=== PATIENT | female | born 1970 | race African-American/Black ===

== ENCOUNTER 2018-05-30 06:16 | Day surgery (SDC) | END 2018-05-30 10:30 | disposition home or self-care (01) ==

== ENCOUNTER 2018-12-21 09:09 | Day surgery (SDC) | payer OTHER ==
[~2018-12-21] VITALS: Ht 162.6 cm; Wt 137.3 kg
[2018-12-21] VITALS (22 sets, daily range): BP systolic 122–191; BP diastolic 73–104; PULSE 68–94; RESP 16–23; Ht 162.6 cm; Wt 137.3 kg
--- NOTE | 2018-12-21 06:28 | PREOPHP ---
DATE OF ADMISSION: 12/21/2018 HISTORY OF PRESENT ILLNESS: A 48-year-old patient who is going to be admitted for diagnostic arthros copy of the right knee, partial medial and lateral meniscectomy, possible repair, synovectomy and joann lication of Bernstein dressing. This patient has been experiencing knee pain for quite a while. Conserv ative treatment resulted in limited benefit to the patient. The patient has requested surgical inter vention. PAST MEDICAL HISTORY: Unremarkable. SOCIAL HISTORY: Negative. Nonsmoker, nondrinker. FAMILY HISTORY: Positive for ____ and stroke. PAST SURGICAL HISTORY: Foot surgery. MEDICATIONS: Patient is not taking any medication, just multivitamin. Recent medication for the pat ient has been folic acid, D3, ____Bactrim-DS and ibuprofen as needed. PHYSICAL EXAMINATION: VITAL SIGNS: Height of 5 foot 4 inches, weighing over 300 pounds. SKIN: Within normal limits. ENT: PERRLA. HEAD AND NECK: Normocephalic. Trachea midline. Bilateral symmetrical carotid pulses. No mass, no lymphadenopathy. CARDIOVASCULAR: Normal sinus rhythm. S1, S2 normal. No murmur, no JVD, no peripheral edema. LUNGS: Clear. ABDOMEN: Protuberant. No organomegaly. No mass. Bowel sounds present. GENITOURINARY AND RECTAL: Not done, not pertinent to this admission. MUSCULOSKELETAL: Head and neck unremarkable. Upper extremities normal with normal neurological exam ination. Spine shows 85% range of motion, mild tenderness over the L4-L5 and L5-S1 facet joints. Ri ght and left knees are symmetrical in appearance. There is a 3 to 4 degrees of recurvatum. Flexion is ____ degrees bilaterally. Right knee shows no instability. There is tenderness over the medial a s well as the lateral patellofemoral joint. There is subpatellar crepitation. There is hamstring-qu adriceps disproportion. There is some tenderness over the medial and lateral tibiofemoral joint line . There is positive Riki test. IMAGING: MRI report showed tricompartment osteoarthritis and ____ of the lateral meniscus, tear of t he medial meniscus, fibrillation of LCL. 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 Treatment plan, alternatives, risks and benefits discussed. The patient understands possible complic ation from surgery such as infection, bleeding, nerve damage, vascular damage, possibility of venous thrombosis, pulmonary embolism, hypersensitivity, and even . [place] result may not be obtained d epending on finding, known or unknown factor or factors. No guarantee has been made. Formal H and P is supposed to be done by PCP. Dictated By: BETSY NDIAYE/ALEKSEY Conf#: [id number] DID#: [id number]
[~2018-12-21 09:09] MED LIST: CEFAZOLIN 2 GM/50 ML (PMX) 50 ML IVPB SCH; WALK1EAC23 MC
[2018-12-21] MEDS ORDERED: FOLI-49 PO (09:53)
[2018-12-21] MEDS ORDERED: EPINEPHrine 1 MG/ML 30 ML INJ ONE (10:14)
[2018-12-21] MEDS ORDERED: LACTATED RINGER'S 1,000 ML IV SCH (10:28)
--- NOTE | 2018-12-21 11:01 | PREAC ---
Date/Time of Note Date/Time of Note DATE: 12/21/18 TIME: 11:00 Anesthesia Eval and Record Evaluation Time Pre-Procedure Interview DATE: 12/21/18 TIME: 11:00 Age 48 Sex female NPO: 8 hrs Preoperative diagnosis left knee torn meniscus synovitis Planned procedure left knee artheroscopy, removal meniscus, repair Past Medical History Past Medical History: Includes Cardio: Other (ablasion) GI: Morbid obesity Heme: Anemia Surgery & Anesthesia Issues No known issue Meds Anticoagulation: No Beta Radha within 24 hr: No Reason Beta Radha not given: Pt. not on B-Radha Reported Medications Folic Acid* (Folic Acid*) 1 Mg Tablet, 0.5 MG PO DAILY, TAB 12/21/18 Discontinued Scripts Front Wheel Walker* (Front Wheel Walker*) 1 Each Dme, EACH [facility] DIRECTED, #1 0 Refills Prov:LI SALAS DPM 05/30/18 Current Medications Cefazolin Sodium/ Dextrose 50 ml @ 100 mls/hr PREOP IVPB ; Start 12/21/18 at 06:30; Stop 12/21/18 at 16:00 Lactated Ringer's 1,000 ml @ 25 mls/hr Q24H IV ; Start 12/21/18 at 10:28 Meds reviewed: Yes Allergies Coded Allergies: Iodine and Iodide Containing Produc (Verified Allergy, Unknown, 12/21/18) Allergies Reviewed: Yes Labs/Studies Labs Reviewed: Reviewed by anesthesiologist test: Negative Studies: ECG (sr), CXR (nl) Pre-procedure Exam Last vitals Vital Signs Date Temp Pulse Resp B/P (MAP) Pulse Ox O2 O2 Flow FiO2 Time Delivery Rate 12/21/18 97.5 89 16 130/73 99 Room Air 09:56 (92) Airway: Adequate mouth opening Mallampati: Mallampati I Teeth: Normal Lung: Normal Heart: Normal ASA Physical Status ASA physical status: 3 Emergency: None Planned Anesthetic General/MAC: ETT, LMA Planned Pain Management Parenteral pain med Pre-operative Attestations Prior to commencing anesthesia and surgery, the patient was re-evaluated, there was verification of: *The patient's identity *The results of appropriate recent lab work and preoperative vital signs *The above evaluation not changing prior to induction *Anesthetic plan, risk benefits, alternative and complications discussed with patient/family; questions answered; patient/family understands, accepts and wishes to proceed. ELIANA AVENDANO MD Dec 21, 2018 11:01
[2018-12-21] MEDS ORDERED: PROPOFOL 20 ML ONE (11:15)
[2018-12-21] MEDS ORDERED: CEFAZOLIN 1 GM INJ ONE (11:15)
[2018-12-21] MEDS ORDERED: MIDAZOLAM 1 MG/ML 2 ML INJ ONE (11:16)
[2018-12-21] MEDS ORDERED: ONDANSETRON 4 MG INJ ONE (11:16)
[2018-12-21] MEDS ORDERED: METOCLOPRAMIDE 10 MG INJ ONE (11:16)
[2018-12-21] MEDS ORDERED: FENTAnyl 50 MCG/ML VIAL ONE ×2 (11:16→12:30)
[2018-12-21] MEDS ORDERED: DIPHENHYDRAMINE 50 MG INJ IV PRN (11:30)
[2018-12-21] MEDS ORDERED: MEPERIDINE 25 MG INJ IV PRN (11:30)
[2018-12-21] MEDS ORDERED: HYDROmorphONE 1 MG/5 ML IV SYRINGE IV PRN ×2 (11:30)
[2018-12-21] MEDS ORDERED: KETOROLAC 30 MG INJ IV PRN (11:30)
[2018-12-21] MEDS ORDERED: ONDANSETRON 4 MG INJ IV PRN (11:30)
[2018-12-21] MEDS ORDERED: hydrALAzine 20 MG INJ IV PRN (11:30)
[2018-12-21] MEDS ORDERED: LABETALOL HCL 20MG INJ IV PRN (11:30)
[2018-12-21] MEDS ORDERED: OXYCODONE/ACETAMINOPHEN (5/325) TAB PO PRN ×2 (11:30)
[2018-12-21] MEDS ORDERED: METOPROLOL 5 MG INJ ONE (12:41)
[2018-12-21] MEDS ORDERED: morphine SULFATE/PF (10 MG/10 ML) INJ ONE (13:20)
[2018-12-21] MEDS ORDERED: SODIUM CL BACTERIOSTATIC 30 ML INJ ONE (13:20)
[2018-12-21] MEDS ORDERED: KETOROLAC 30 MG INJ ONE (13:23)
--- NOTE | 2018-12-21 13:46 | SIPON ---
Date/Time of Note Date/Time of Note DATE: 12/21/18 TIME: 13:42 Operative Report Preoperative Diagnosis Rt. Knee torn medial and lateral meniscus, plus chronic synovitis Postoperative Diagnosis The same Operation/Procedure Performed Diagnostic scope. partial media, lateral meniscectomy, extensive lateral meniscal repair, plus total synovectomy, and application of Bernstein dressing Surgeon Betsy Villavicencio MD assistant professor of theater None Anesthesia: general Estimated blood loss: minimal Transfusion Required none Specimen none Grafts/Implants none Complications none BETSY VILLAVICENCIO MD Dec 21, 2018 13:46
[2018-12-21] MEDS: HYDROmorphONE 1 MG/5 ML IV SYRINGE IV PRN ×3 (13:57→14:18)
[2018-12-21] MEDS ORDERED: HYDROCODONE/APAP (5/325) TAB PO PRN (14:00)
--- NOTE | 2018-12-21 18:05 | OPR ---
DATE OF OPERATION: 12/21/2018 PREOPERATIVE DIAGNOSES: Torn medial meniscus, torn lateral meniscus, synovitis of the right knee. POSTOPERATIVE DIAGNOSES: Torn medial meniscus, torn lateral meniscus, synovitis of the right knee. PROCEDURE: Diagnostic arthroscopy, partial medial and partial lateral meniscectomy with extensive la teral meniscal repair, total synovectomy, application of Bernstein dressing. ANESTHESIA: General. BLEEDING: Minimal. COMPLICATION: None. OPERATIVE PROCEDURE: The patient was transferred to the operating room and placed on the operating t able in supine position. General anesthesia was induced. A gram of Ancef was given IV. Right lower extremity was prepped and draped in the routine fashion. Landmarks were marked. Through 2 anterior portals, 1 medial and 1 lateral per patellar tendon, operative arthroscopy was co mmenced. Examination of suprapatellar pouch indicated chronic synovitis which was total synovectomy with Arthrocare Bovie was done by coagulation. Extensive debris was in the joint which was irrigated . Medial and lateral gutters were cleared of loose body. Patella showed grade III chondromalacia on trochlear groove and patella. There was chronic synovitis superiorly and inferiorly to patella whic h was coagulated. Going to the medial compartment, there was a small flap tear of the anterior horn. Otherwise, periph tae of the meniscus was stable. The meniscus was intact. Articular surface indicated early grade II I chondromalacia. ACL was intact. Going to the lateral compartment showed extensive meniscal tear in the posterior, middle and anterior third that was complex -- combination of vertical tear, oblique tear, horizontal cleavage tear. In the periphery was unstable posterolateral corner, lateral and anterior third. Partial lateral menisc ectomy was performed to stable margins and we used a Fast-Fix to repair the posterolateral corner, an d we used 2 sutures using Meniscus Mender to stabilize the anterior junction of the middle and anteri or third and anterior third. Stable fixation on bleeding margin was obtained. There was chronic syn ovitis extensively in the lateral compartment which was taken care of by coagulation with Arthrocare Bovie. Articular surface indicated on the tibia early grade III and on the femoral side late grade I II chondromalacia. Knee was evacuated of debris with copious amounts of saline irrigation. Portal was closed with benzo in and Steri-Strips. Two small incisions which were made inferiorly to bury the sutures for repair o f the lateral meniscus were buried under the skin. Duramorph and saline 50:50 was injected into the knee, total of 20 mL. Sterile Bernstein dressing was applied. Procedure was terminated. General anesth esia was stopped. The patient was taken to the recovery room in good, stable condition. Dictated By: BETSY NDIAYE/ALEKSEY Conf#: [id number] DID#: [id number]
--- NOTE | 2018-12-21 18:10 | PAC ---
Date/Time of Note Date/Time of Note DATE: 12/21/18 TIME: 18:10 Post-Anesthesia Notes Post-Anesthesia Note Last documented vital signs Vital Signs Date Temp Pulse Resp B/P (MAP) Pulse Ox O2 O2 Flow FiO2 Time Delivery Rate 12/21/18 97.8 68 18 150/79 93 Room Air 15:14 (102) Activity: WNL Respiratory function: WNL Cardiovascular function: WNL Mental status: Baseline Pain reasonably controlled: Yes Hydration appropriate: Yes Nausea/Vomiting absent: No ELIANA AVENDANO MD Dec 21, 2018 18:10
== END 2018-12-21 15:51 | disposition home or self-care (01) ==
LOC: SDS 09:09
PROVIDERS: ATTEND Internal Medicine Endocrinology, Diabetes & Metabolism
DX: M23.241 Derangement of anterior horn of lateral meniscus due to old tear or injury, right knee (principal); M23.211 Derangement of anterior horn of medial meniscus due to old tear or injury, right knee; M65.861 Other synovitis and tenosynovitis, right lower leg; M22.41 Chondromalacia patellae, right knee; I10 Essential (primary) hypertension; E78.5 Hyperlipidemia, unspecified
CPT/HCPCS: 29876; 29880; C1713; J0171; J0690; J1170; J1885; J2250; J2274; J2405; J2765; J3010; Z7512; Z7610